=== PATIENT | male | born 1950 | race Caucasian/White ===

== ENCOUNTER 2017-04-18 09:06 | Emergency (ER) | payer BC ==
[2017-04-18 09:55] VITALS: BP 123/88
[2017-04-18] MEDS ORDERED: Naproxen TAB* 250 MG PO ONE (10:16)
--- NOTE | 2017-04-18 10:47 | RAD ---
HISTORY: Left shoulder injury COMPARISONS: None VIEWS: 4, Frontal internal rotation, external rotation, outlet, and axillary views FINDINGS: BONE DENSITY: Normal. BONES: There is minimal cortical irregularity of the distal (lateral) left clavicle at the AC joint . JOINTS: There is no arthropathy. ALIGNMENT: There is no dislocation. SOFT TISSUES: Unremarkable. OTHER FINDINGS: None. IMPRESSION: QUESTIONABLE NONDISPLACED FRACTURE OF THE LATERAL LEFT CLAVICLE AT THE AC JOINT. RECOMMEND CORRELATION WITH SITE OF PAIN.
--- NOTE | 2017-04-18 11:10 | UC ---
Shoulder Pain HPI - HPI Summary HPI Summary: 66 yo male fell on left shoulder last PM He is right handed unable to abduct arm - History of Current Complaint Chief Complaint: UCUpperExtremity Stated Complaint: LEFT SHOULDER INJURY Time Seen by Provider: 04/18/17 10:10 Hx Obtained From: Patient Onset/Duration: Sudden Onset Timing: Constant Severity Initially: Severe Severity Currently: Mild Location Of Pain: Is Diffuse Pain Intensity: 4 Pain Scale Used: 0-10 Numeric Character: Dull, Aching Aggravating Factor(s): Movement, Lifting, Flexion, Extension, Internal Rotation , External Rotation, Abduction Alleviating Factor(s): Rest Associated Signs And Symptoms: Positive: Bruising Related History: Dominant Hand Right - Allergies/Home Medications Allergies/Adverse Reactions: Allergies Allergy/AdvReac Type Severity Reaction Status Date / Time No Known Allergies Allergy Verified 03/16/16 07:58 Home Medications: Home Medications DOXYcycline CAP(*) [DOXYcycline 100MG CAP(*)] 100 mg PO DAILY 04/18/17 [History Confirmed 04/18/17] PMH/Surg Hx/FS Hx/Imm Hx Previously Healthy: Yes - Surgical History Surgical History: Yes Surgery Procedure, Year, and Place: hernia. disc l5 s1 herniated - Family History Known Family History: Positive: Other - mom Parkinsons dad-pacer Negative: Cardiac Disease, Hypertension, Diabetes, Respiratory Disease - Social History Alcohol Use: Weekly Alcohol Amount: 2-3 beers Substance Use Type: None Smoking Status (MU): Former Smoker When Did the Patient Quit Smoking/Using Tobacco: 2009 Review of Systems Constitutional: Negative Skin: Bruising Eyes: Negative ENT: Negative Respiratory: Negative Cardiovascular: Negative Gastrointestinal: Negative Genitourinary: Negative Motor: Decreased ROM Neurovascular: Negative Musculoskeletal: Arthralgia Neurological: Negative Psychological: Negative All Other Systems Reviewed And Are Negative: Yes Physical Exam Triage Information Reviewed: Yes Appearance: Well-Appearing, No Pain Distress, Well-Nourished Vital Signs: Initial Vital Signs Temp 97.9 F 04/18/17 09:51 Pulse 78 04/18/17 09:51 Resp 16 04/18/17 09:51 BP 123/88 04/18/17 09:51 Pulse Ox 96 04/18/17 09:51 Vital Signs Reviewed: Yes Eyes: Positive: Conjunctiva Clear ENT: Positive: Hearing grossly normal. Negative: Nasal congestion, Nasal drainage, Trismus, Muffled/hoarse voice Neck: Positive: Supple, Nontender Respiratory: Positive: Lungs clear, Normal breath sounds, No respiratory distress, No accessory muscle use Cardiovascular: Positive: RRR, No Murmur Musculoskeletal: Positive: ROM Intact, No Edema Neurological: Positive: Alert Psychological Exam: Normal Skin Exam: Normal Shoulder Course/Dx - Differential Dx/Diagnosis Provider Diagnoses: Left shoulder distal clavicular fx (non displaced). ? rotator cuff tear Discharge - Discharge Plan Condition: Stable Disposition: HOME Prescriptions: Naproxen Sodium [Naproxen Sodium 500 MG TAB] 500 mg PO BID PRN #30 tab PRN Reason: Pain Patient Education Materials: Clavicle Fracture (ED) Forms: *Work Release Referrals: Gregory Thayer MD [Medical Doctor] - As Soon As Possible Additional Instructions: XR was suspicious of a fracture to the distal clavicle I am concerned that you may have also injured your rotator cuff
== END 2017-04-18 11:27 | disposition home or self-care (01) ==
LOC: UCCORT 09:06
DX: S42.035A Nondisplaced fracture of lateral end of left clavicle, initial encounter for closed fracture (principal); W19.XXXA Unspecified fall, initial encounter; Y93.9 Activity, unspecified; Y92.9 Unspecified place or not applicable; Z87.891 Personal history of nicotine dependence
CPT/HCPCS: 99212; A9270-GY; G0463